=== PATIENT | female | born 1970 | race African-American/Black ===

== ENCOUNTER 2022-07-13 04:48 | Emergency (ER) | payer OTHER ==
[~2022-07-13] VITALS: Ht 170.2 cm; Wt 81.0 kg
[2022-07-13 07:16] LABS: BASOPHILS % 0.5 % (0.0-2.0); EOSINOPHILS % 4.4 % (0.0-5.0); HEMATOCRIT. 41.6 % (36.0-48.0); HEMOGLOBIN. 13.6 g/dL (12.0-16.0); LYMPHOCYTES % 36.7 % (20.0-50.0); MEAN CORPUSCULAR HEMOGLOBIN 28.4 pg (28.0-32.0); MEAN CORPUSCULAR VOLUME 86.9 fL (81.0-99.0); MEAN PLATELET VOLUME 8.7 fl (7.4-10.4); MONOCYTES % 6.6 % (2.0-8.0); NEUTROPHILS % 51.8 % (40.0-76.0); PLATELET 243 x1000/uL (130-400); RED BLOOD CELL COUNT 4.79 mill/uL (4.2-5.4); RED CELL DISTRIBUTION WIDTH 13.1 % (11.6-14.6)
[2022-07-13 07:24] LABS: PROTHROMBIN TIME 10.3 sec (9.6-11.0)
[2022-07-13 07:35] LABS: CHLORIDE 104 mEq/L (98-107); CLARITY URINE CLOUDY (CLEAR); COLOR URINE ORANGE (YELLOW); KETONES URINE NEGATIVE (NEGATIVE); LEUKOCYTE ESTERASE URINE TRACE (NEGATIVE); NITRITE URINE NEGATIVE (NEGATIVE); OCCULT BLOOD URINE NEGATIVE (NEGATIVE); PROTEIN URINE 2+ (NEGATIVE); SPECIFIC GRAVITY URINE 1.017 (1.005-1.030)
[2022-07-13] MEDS ORDERED: TETANUS AND DIPHTHERIA TOX/PF 0.5ML SYR (ADULT) IM ONE (08:15)
[2022-07-13 10:50] VITALS: BP 166/88
== END 2022-07-13 11:50 | disposition short-term general hospital (02) ==
LOC: ER 04:48 → CANBEDREQ 11:28 → ER 11:50
DX: R55 Syncope and collapse (principal); R11.0 Nausea; R51.9 Headache, unspecified; J45.909 Unspecified asthma, uncomplicated; E11.9 Type 2 diabetes mellitus without complications; Z20.822 Contact with and (suspected) exposure to COVID-19
CPT/HCPCS: 36415; 70450; 70486; 71045; 80053; 81003; 81025; 82962; 83690; 84484; 85025; 85610; 87426; 99291; C9803; 90714